=== PATIENT | male | born 1975 | race Caucasian/White ===

== ENCOUNTER 2022-06-05 16:29 | Emergency (ER) | payer BC ==
[2022-06-05] MEDS ORDERED: Diphtheria,Pertussis(Acell),Tetanus Vaccine 0.5 ML Syringe IM ONE (17:08)
[2022-06-05] MEDS ORDERED: Bacitracin Oint 1 GM U/D Packet TOP ONE (17:08)
== END 2022-06-05 17:23 | disposition home or self-care (01) ==
LOC: JP.ED 16:29
DX: S61.432A Puncture wound without foreign body of left hand, initial encounter (principal); Z23 Encounter for immunization; W45.0XXA Nail entering through skin, initial encounter
CPT/HCPCS: 90471; 90715; 99283; 99283-25